=== PATIENT | female | born 1940 | race Caucasian/White ===

== ENCOUNTER → 2016-08-04 | Outpatient (CLI) | payer OTHER, MEDICARE | LOC: FIMAGING 14:20 | PROVIDERS: ATTEND Internal Medicine | DX: R10.9 Unspecified abdominal pain (principal) ==

== ENCOUNTER → 2016-08-10 | Outpatient (CLI) | payer OTHER, MEDICARE | LOC: FIMAGING 08:24 | PROVIDERS: ATTEND Internal Medicine | DX: Z12.31 Encounter for screening mammogram for malignant neoplasm of breast (principal); Z13.820 Encounter for screening for osteoporosis | CPT/HCPCS: G0202 ==

== ENCOUNTER 2017-07-08 04:44 | Emergency (ER) | payer OTHER, MEDICARE ==
[2017-07-08 04:59] VITALS: BP 165/89; PULSE 85; RESP 18; TEMP 97.5; O2SAT 95
--- NOTE | 2017-07-08 05:02 | EDPHY ---
H & P Stated Complaint: WORRIED ABOUT POSS VAG INFECTION THAT INCREASED B/P Time Seen by Provider: 07/08/17 04:48 HPI/ROS: Chief Complaint: High blood pressure, vaginal discharge HPI: 77 year old woman with a history of hypertension woke this morning with a strange tingling sensation in her head. She checked her blood pressure and it was 100 and 60s systolic. She checked it again several minutes later was down to 151. She decided to come the emergency department because she has also been having some vaginal discharge and some discomfort in her left foot. She is leaving for [place] in 3 days 1 to make sure everything was okay. She is prediabetic is concerned that the discomfort in her foot is secondary to her blood sugar being high. She did take a course of oral antibiotics 2 weeks ago for a vaginal bacterial infection. She has since developed occurred like cottage cheese discharge consistent with prior vaginal yeast infections. Patient states she has gets vaginal infections every time she takes an antibiotic. No urinary urgency or frequency. No nausea or vomiting. No headache. No chest pain or shortness of breath. ROS: 10 point Review of Systems is negative except as noted in the HPI. PMH: Hypertension Social History: No smoking, no alcohol, no recreational drug use Family History: non-contributory Physical Exam: Gen: Awake, Alert, No Distress HEENT: Nose: no rhinorrhea Eyes: PERRLA, EOMI Mouth: Moist mucosa Neck: Supple, no JVD Chest: nontender, lungs clear to auscultation Heart: S1, S2 normal, no murmur Abd: Soft, non-tender, no guarding Back: no CVA tenderness, no midline tenderness Ext: no edema, non-tender Skin: no rash Neuro: CN II-XII intact, Sensation grossly intact, Strength 5/5 in bilateral upper and lower extremities - Personal History Current Tetanus/Diphtheria Vaccine: Yes Current Tetanus Diphtheria and Acellular Pertussis (TDAP): Yes Tetanus Vaccine Date: 2009 - Medical/Surgical History Hx Asthma: No Hx Chronic Respiratory Disease: No Hx Diabetes: No Hx Cardiac Disease: No Hx Renal Disease: No Hx Cirrhosis: No Hx Alcoholism: No Hx HIV/AIDS: No Hx Splenectomy or Spleen Trauma: No Other PMH: HTN, KNEE REPLACED , NOSE SURGERY, ELECTRICAL BLOCKAGE ?, orthoscopic surgery B/L knees, GERD, hysterectomy, eye lift, tummy tuck, post op staph. - Social History Smoking Status: Never smoked Constitutional: Initial Vital Signs Temperature (C) 36.4 C 07/08/17 04:45 Heart Rate 85 07/08/17 04:45 Respiratory Rate 18 07/08/17 04:45 Blood Pressure 165/89 H 07/08/17 04:45 O2 Sat (%) 95 07/08/17 04:45 O2 Delivery Mode Room Air Allergies/Adverse Reactions: No Known Allergies Allergy (Unverified 07/08/17 04:58) Home Medications: Medication Instructions Recorded Acetaminophen [Tylenol ES 500 mg 1,000 mg PO Q4 PRN 09/08/12 (*)] Herbals/Supplements -Info Only 1 each PO AD 09/08/12 Ibuprofen [Motrin (*)] 600 mg PO Q4 PRN 09/08/12 Estradiol 0.5 mg PO DAILY 07/01/14 Losartan Potassium [Cozaar 50 mg 50 mg PO DAILY 07/08/17 (*)] Medical Decision Making ED Course/Re-evaluation: 7-year-old woman with hypertension. She has no symptoms suggestive of end- organ dysfunction. She is also having discharge consistent with a vaginal yeast infection was certainly could be causing her blood pressure becomes elevated. Will treat her with a single dose of Diflucan. Blood sugar has been checked. I have informed her that neuropathy from hyperglycemia woke her over years of poor blood flow from chronic high blood sugars. Do not think she has any of his neuropathy. She has got normal neurologic exam. Blood sugar is 94. Departure - Departure Disposition: Home, Routine, Self-Care Clinical Impression: Candidiasis of vagina, Hypertension Condition: Good Instructions: Yeast Infection (ED), Hypertension (ED) Additional Instructions: Follow up with primary care physician in 1-2 days for blood pressure check. Return to the emergency department for chest pain, headache, nausea or vomiting , fevers or chills, or any other concerns. Referrals: Shaniqua Curran MD [Primary Care Provider] - As per Instructions
[2017-07-08] MEDS ORDERED: FLUCONAZOLE 150 MG TAB PO ONE (05:03)
== END 2017-07-08 05:23 | disposition home or self-care (01) ==
DX: B37.3 Candidiasis of vulva and vagina (principal); I10 Essential (primary) hypertension

== ENCOUNTER → 2017-09-13 | Outpatient (CLI) | payer OTHER, MEDICARE | LOC: FIMAGING 10:52 | PROVIDERS: ATTEND Internal Medicine | DX: Z12.31 Encounter for screening mammogram for malignant neoplasm of breast (principal) ==

== ENCOUNTER → 2018-09-17 | Outpatient (CLI) | payer OTHER, MEDICARE | LOC: FIMAGING 13:30 | PROVIDERS: ATTEND Physician Assistant | DX: Z12.31 Encounter for screening mammogram for malignant neoplasm of breast (principal); R92.8 Other abnormal and inconclusive findings on diagnostic imaging of breast ==

== ENCOUNTER → 2018-10-02 | Outpatient (CLI) | payer OTHER, MEDICARE | LOC: FIMAGING 12:13 | PROVIDERS: ATTEND Physician Assistant | DX: R92.8 Other abnormal and inconclusive findings on diagnostic imaging of breast (principal) ==